=== PATIENT | male | born 1925 | race Caucasian/White ===

== ENCOUNTER → 2016-11-17 | Outpatient (CLI) | payer MEDICARE, BC ==
[~2016-11-17] MED LIST: ASPIRIN PO; ASPIRIN81 M2 PO; ASPIRIN81 MG PO; B-121000 MC1 PO; COMBIVENT U/D3 M2 INH; COUMADIN PO; COUMADIN2.5 MG PO; COUMADIN5 MG PO; DARVOCET-N 1001 TAB PO; FUROSEMIDE40 MG PO; HCTZ PO; HYDROCHLOROTHIA25 MG PO; IBUPROFEN PO; IMDUR PO; IMDUR-ER30 M1 DOB; IMDUR-ER30 M1 PO; IMDUR-ER30 M2 PO; K-DUR20 ME1 DOB; K-DUR20 ME2 PO; K-LOR HOSPITAL20 ME1 PO; KCL PO; LISINOPRIL PO; LISINOPRIL10 MG PO; LISINOPRIL20 MG PO; NEURONTIN PO; PROAIR RESPICL90 MCG INH; RANEXA500 MG DOB; RANEXA500 MG PO; SIMVASTATIN20 MG PO; SYMBICORT 16010.2 GM INH; SYMBICORT INH; TOPROL XL PO; TOPROL XL50 MG PO; TYLENOL #3 PO; VANTIN200 MG PO; VICODIN 5/500 T1 TAB PO; VITAMIN B122500 MC1 PO; ZANAFLEX PO; ZOCOR PO
--- NOTE | ~2016-11-17 | MR32 ---
[facility] A Service of [facility] [place] RADIOLOGY TEXT RESULTS PATIENT: CAROLYN DIANA LOCATION: [facility] : [birth year] UNIT #: [id number] AGE: [address]: Rodri Strange MD SEX: M ORDER DR: [id number] [place] [id number] O MR#: [id number] Acc #: [id number] NAME: CAROLYN DIANA : 1925 SEX: M STUDY DATE/TIME: 11/17/2016 12:52 UNIT: [facility] ROOM: STUDY DESCRIPTION: MR Cervical Wo Contrast Attending Physician: Rodri Strange M.D. Referring Physician: Rodri Strange M.D. Ordering Physician: Rodri Strange M.D. Primary Care Physician: Chava Del Real M.D. [facility]ENTER REPORT This report is preliminary unless electronic signature is present. EXAM Cervical spine MRI no contrast, 11/17/2016 PROCEDURE Routine unenhanced cervical spine MRI COMPARISON None HISTORY Bilateral hand numbness and tingling, right greater than left, chronic but worse for 2 years. 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 Cervical cord signal is normal. The posterior fossa and its contents are normal and the paraspinous tissues are unremarkable. At 2-3, the canal and foramina are within normal limits. At 3-4, there is mild degenerative canal stenosis and probably slight cord compression and moderate bilateral foraminal stenosis. At 4-5, there is mild canal stenosis but probably without cord compression but moderate to severe left and severe right foraminal stenosis. At 5-6, there is mild canal stenosis and no cord compression and mild left and mild to moderate right foraminal stenosis. [facility] A Service of [facility] [place] RADIOLOGY TEXT RESULTS PATIENT: CAROLYN DIANA LOCATION: [facility] : [birth year] UNIT #: [id number] AGE: [address]: Rodri Strange MD SEX: M ORDER DR: At 6-7, there is mild canal stenosis without cord compression and severe right and moderate or moderate to severe left foraminal stenosis. At 7-1, the canal and foramina are within normal limits. IMPRESSION Multilevel degenerative change. There is slight degenerative cord compression at 3-4 but no abnormal cord signal at this or any level. There is multilevel foraminal compromise. 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 Please see above for [id number] details. Dictated by... Toribio Arias M.D. THIS IS AN ELECTRONICALLY VERIFIED REPORT Toribio Arias M.D. at 11/18/2016 3:58 PM YUDITH/tiny TD: 11/17/2016 15:33 JOB #: [id number] [facility] REPORT Page 1 of 1
== END | disposition home or self-care (01) ==
LOC: SMRI 12:15
DX: G56.00 Carpal tunnel syndrome, unspecified upper limb (principal); G95.9 Disease of spinal cord, unspecified; R20.0 Anesthesia of skin; G62.9 Polyneuropathy, unspecified; G95.20 Unspecified cord compression; M47.812 Spondylosis without myelopathy or radiculopathy, cervical region; M41.83 Other forms of scoliosis, cervicothoracic region; M43.14 Spondylolisthesis, thoracic region
CPT/HCPCS: 72141